=== PATIENT | female | born 1980 | race Two or more races ===

== ENCOUNTER 2019-01-13 09:10 | Outpatient (CLI) | payer OTHER | END 2019-01-13 09:16 | disposition home or self-care (01) | LOC: SONOGRAMA 09:10 | DX: R10.84 Generalized abdominal pain (principal) ==

== ENCOUNTER 2019-12-15 08:16 | Emergency (ER) | payer OTHER ==
[~2019-12-15] VITALS: Ht 129.5 cm; Wt 63.5 kg
== END 2019-12-15 13:16 | disposition home or self-care (01) ==
LOC: ER 08:16
DX: N39.0 Urinary tract infection, site not specified (principal); R10.84 Generalized abdominal pain